=== PATIENT | male | born 1990 | race Caucasian/White ===

== ENCOUNTER 2018-11-19 00:12 | Emergency (ER) | payer SELFPAY ==
[~2018-11-19] VITALS: Ht 165.1 cm; Wt 101.9 kg
[~2018-11-19 00:12] MED LIST: CEPH-443 PO; DOXY-214 PO; HYDR-4011 PO; IBUP-1541 PO; NAPR-985 PO; SULF1TAB31 PO
[2018-11-19 00:25] VITALS: BP 129/58; PULSE 67; RESP 18; Ht 165.1 cm; Wt 101.9 kg
[2018-11-19] MEDS ORDERED: NAPROXEN 500 MG TAB PO ONE (03:00)
[2018-11-19] MEDS: NAPROXEN 250 MG TAB PO SCH ×2 (03:13→03:14)
== END 2018-11-19 03:15 | disposition home or self-care (01) ==
LOC: FTE 00:12
DX: L02.31 Cutaneous abscess of buttock (principal)
CPT/HCPCS: 99283

== ENCOUNTER 2018-12-10 15:02 | Emergency (ER) | payer MEDICAID ==
[~2018-12-10] VITALS: Ht 165.1 cm; Wt 104.0 kg
[2018-12-10 15:27] VITALS: BP 118/59; PULSE 57; RESP 18; Ht 165.1 cm; Wt 104.0 kg
== END 2018-12-10 16:31 | disposition home or self-care (01) ==
LOC: E/R 15:02
DX: Z48.01 Encounter for change or removal of surgical wound dressing (principal)
CPT/HCPCS: 99281